=== PATIENT | male | born 1960 | race African-American/Black ===

== ENCOUNTER 2022-06-15 01:10 | Inpatient (IN) | payer MEDICAID ==
[~2022-06-15] VITALS: Ht 165.1 cm; Wt 100.2 kg
[2022-06-15] MEDS ORDERED: ONDANSETRON HCL 4MG/2ML INJ IV STA (01:30)
[2022-06-15] MEDS ORDERED: ASPIRIN 325MG EC TABLET PO ONE (01:30)
[2022-06-15] MEDS ORDERED: MORPHINE SULFATE 4 MG/ML CPJ (NOT FOR IM USE) IV STA (01:30)
[2022-06-15 02:13] LABS: BASOPHILS % 0.4 % (0.0-2.0); HEMATOCRIT. 38.4 % (42.0-52.0); HEMOGLOBIN. 13.1 g/dL (14.0-18.0); LYMPHOCYTES % 28.7 % (20.0-50.0); MEAN CORPUSCULAR HEMOGLOBIN 30.6 pg (28.0-32.0); MEAN CORPUSCULAR VOLUME 89.8 fL (80.0-94.0); MEAN PLATELET VOLUME 7.1 fl (7.4-10.4); MONOCYTES % 9.7 % (2.0-8.0); NEUTROPHILS % 58.2 % (40.0-76.0); PLATELET 268 x1000/uL (130-400); RED BLOOD CELL COUNT 4.28 mill/uL (4.7-6.1); RED CELL DISTRIBUTION WIDTH 13.6 % (11.6-14.6)
[2022-06-15 02:45] LABS: PROTHROMBIN TIME 10.3 sec (9.6-11.0)
[2022-06-15] MEDS ORDERED: ENOXAPARIN 100MG/ML SYR SUBCUT NR (02:45)
[2022-06-15 02:48] LABS: ETHANOL BLOOD < 10 mg/dL
[2022-06-15 03:45] LABS: *AMPHETAMINES SCREEN URINE NEGATIVE (NEGATIVE); *BARBITURATES SCREEN URINE NEGATIVE (NEGATIVE); *BENZODIAZEPINES SCREEN URINE NEGATIVE (NEGATIVE); *COCAINE SCREEN URINE NEGATIVE (NEGATIVE); CANNABINOID URINE SCREEN NEGATIVE (NEGATIVE); METHADONE URINE SCREEN NEGATIVE (NEGATIVE); OPIATES URINE SCREEN PRESUMTIVE POSITIVE (NEGATIVE); PHENCYCLIDINE URINE SCREEN NEGATIVE (NEGATIVE)
[2022-06-15 05:37] LABS: CHLORIDE 101 mEq/L (98-107)
[2022-06-15 09:00] VITALS: BP 131/72
[2022-06-15] MEDS ORDERED: NALOXONE HCL 0.4MG/ML VIAL IV PRN (13:45)
[2022-06-15] MEDS ORDERED: DEXTROSE 50% WATER 50ML SYRINGE IV PRN (14:30)
[2022-06-15 16:00] VITALS: BP 132/72
[2022-06-15] MEDS ORDERED: METOPROLOL SUCCINATE 50MG ER TABLET PO SCH (17:00)
[2022-06-15] MEDS ORDERED: INSULIN LISPRO 100 UNITS/ML SUBCUT SCH (17:40)
[2022-06-15] MEDS: INSULIN LISPRO 100 UNITS/ML SUBCUT SCH ×2 (17:45→21:49)
[2022-06-15] MEDS: BLOOD SUGAR DIAGNOSTIC STRIP TEST SCH ×2 (17:48→21:33)
[2022-06-15] MEDS: HYDROCODONE/ACETAMINOPHEN 5/325MG TABLET PO PRN (17:53)
[2022-06-15 20:00] VITALS: BP 136/87
[2022-06-15] MEDS: ATORVASTATIN CALCIUM 40MG TABLET PO SCH (21:47)
[2022-06-15] MEDS: FAMOTIDINE 20MG TABLET PO SCH (21:48)
[2022-06-15] MEDS: METOPROLOL TARTRATE 50MG TABLET PO SCH (21:48)
[2022-06-16] VITALS: BP 126/85
[2022-06-16 04:00] VITALS: BP 163/107
[2022-06-16] MEDS: BLOOD SUGAR DIAGNOSTIC STRIP TEST SCH ×4 (06:47→21:56)
[2022-06-16 07:32] LABS: BASOPHILS % 0.3 % (0.0-2.0); EOSINOPHILS % 2.5 % (0.0-5.0); HEMATOCRIT. 39.7 % (42.0-52.0); HEMOGLOBIN. 13.6 g/dL (14.0-18.0); LYMPHOCYTES % 24.2 % (20.0-50.0); MEAN CORPUSCULAR HEMOGLOBIN 30.6 pg (28.0-32.0); MEAN CORPUSCULAR VOLUME 89.3 fL (80.0-94.0); MEAN PLATELET VOLUME 7.2 fl (7.4-10.4); PLATELET 258 x1000/uL (130-400); RED BLOOD CELL COUNT 4.44 mill/uL (4.7-6.1); RED CELL DISTRIBUTION WIDTH 13.1 % (11.6-14.6)
[2022-06-16 08:00] VITALS: BP 145/87
[2022-06-16] MEDS: INSULIN LISPRO 100 UNITS/ML SUBCUT SCH ×4 (08:10→21:56)
[2022-06-16] MEDS ORDERED: ENOXAPARIN 40MG/0.4ML SYR SUBCUT SCH (09:00)
[2022-06-16] MEDS ORDERED: ASPIRIN 81MG TABLET PO SCH (09:00)
[2022-06-16] MEDS ORDERED: ATORVASTATIN CALCIUM 40MG TABLET PO SCH (09:00)
[2022-06-16] MEDS: METOPROLOL TARTRATE 50MG TABLET PO SCH (09:18)
[2022-06-16] MEDS: HYDROCODONE/ACETAMINOPHEN 5/325MG TABLET PO PRN ×2 (09:18→18:47)
[2022-06-16] MEDS: FAMOTIDINE 20MG TABLET PO SCH ×2 (09:18→21:46)
[2022-06-16] MEDS ORDERED: DIPHENHYDRAMINE 50MG/ML VIAL ONE (10:52)
[2022-06-16] MEDS ORDERED: HEPARIN 1000 UNITS/ML 10ML ONE (10:52)
[2022-06-16] MEDS ORDERED: VERAPAMIL HCL 2.5 MG/1 ML 2ML VIAL IV ONE (10:52)
[2022-06-16] MEDS ORDERED: LIDOCAINE HCL/PF 2% 20MG/ML 5 ML/VIAL ONE (10:52)
[2022-06-16] MEDS ORDERED: IODIXANOL 320MG/ML 100 ML BOTTLE IV ONE (10:54)
[2022-06-16] MEDS ORDERED: MIDAZOLAM HCL 2 MG/2 ML VIAL ONE (13:03)
[2022-06-16] MEDS ORDERED: FENTANYL CITRATE/PF 50MCG/ML 2ML VIAL ONE (13:03)
[2022-06-16] MEDS ORDERED: ATROPINE SULFATE 1MG/10ML SYR IV PRN (14:30)
[2022-06-16 16:00] VITALS: BP 135/81
[2022-06-16] MEDS ORDERED: NITROGLYCERIN 0.4MG TABLET SL SL PRN (18:15)
[2022-06-16] MEDS ORDERED: ACETAMINOPHEN 325MG TABLET PO PRN (18:15)
[2022-06-16] MEDS: FUROSEMIDE 40MG/4ML VIAL IVP SCH (18:18)
[2022-06-16 20:00] VITALS: BP 123/57
[2022-06-16] MEDS ORDERED: MAGNESIUM 2 G PREMIX 50 ML IV PRN (20:45)
[2022-06-16] MEDS ORDERED: ALBUMIN HUMAN 25GM/100ML (25%) IV PRN (20:45)
[2022-06-16] MEDS ORDERED: MAGNESIUM SULFATE 3 GM in DEXT 5% WATER 100 ML IV PRN (20:45)
[2022-06-16] MEDS ORDERED: CALCIUM CHLORIDE 5,000 MG in DEXT 5% WATER 500 ML IV PRN (20:45)
[2022-06-16] MEDS ORDERED: MAGNESIUM 1 G PREMIX 100 ML IV PRN (20:45)
[2022-06-16] MEDS ORDERED: SODIUM CHLORIDE 0.9% 500 ML IV PRN (20:45)
[2022-06-16] MEDS ORDERED: ONDANSETRON HCL 4MG/2ML INJ IV PRN (20:45)
[2022-06-16] MEDS ORDERED: KETOROLAC 15MG/ML VIAL IV PRN (20:45)
[2022-06-16] MEDS ORDERED: OXYCODONE HCL/ACETAMINOPHEN 5/325MG TABLET PO PRN (20:45)
[2022-06-16] MEDS ORDERED: CALCIUM CHLORIDE 3,000 MG in DEXT 5% WATER 250 ML IV PRN (20:45)
[2022-06-16] MEDS ORDERED: ALBUMIN HUMAN 12.5G/250ML (5%) IV PRN (20:45)
[2022-06-16] MEDS ORDERED: DIPHENHYDRAMINE 25MG CAPSULE PO PRN (21:00)
[2022-06-16] MEDS ORDERED: DOCUSATE SODIUM 100MG CAPSULE PO SCH (21:00)
[2022-06-16] MEDS ORDERED: DOPAMINE 400MG/250ML PREMIX 250 ML IV SCH (21:00)
[2022-06-16] MEDS ORDERED: ASCORBIC ACID 500 MG TABLET PO SCH (21:00)
[2022-06-16] MEDS ORDERED: CHLORHEXIDINE GLUCONATE 4% EXTERNAL USE TOP SCH (21:00)
[2022-06-16] MEDS ORDERED: BISACODYL 10MG SUPP PR PRN (21:00)
[2022-06-16 21:06] LABS: CHLORIDE 99 mEq/L (98-107)
[2022-06-16 21:14] LABS: BASOPHILS % 0.8 % (0.0-2.0); EOSINOPHILS % 1.8 % (0.0-5.0); HEMATOCRIT. 38.5 % (42.0-52.0); HEMOGLOBIN. 13.3 g/dL (14.0-18.0); LYMPHOCYTES % 20.7 % (20.0-50.0); MEAN CORPUSCULAR HEMOGLOBIN 30.5 pg (28.0-32.0); MEAN CORPUSCULAR VOLUME 88.3 fL (80.0-94.0); MEAN PLATELET VOLUME 6.6 fl (7.4-10.4); MONOCYTES % 9.7 % (2.0-8.0); PLATELET 265 x1000/uL (130-400); RED BLOOD CELL COUNT 4.36 mill/uL (4.7-6.1); RED CELL DISTRIBUTION WIDTH 12.9 % (11.6-14.6)
[2022-06-16] MEDS: ALLOPURINOL 300 MG TABLET PO SCH (21:43)
[2022-06-16] MEDS: CHLORDIAZEPOXIDE 25MG CAPSULE PO SCH (21:45)
[2022-06-16] MEDS: METOPROLOL TARTRATE 25MG TABLET PO SCH (21:45)
[2022-06-16] MEDS: ATORVASTATIN CALCIUM 40MG TABLET PO SCH (21:46)
[2022-06-16] MEDS ORDERED: CEFAZOLIN 1000MG PREMIX 50 ML IV SCH (22:00)
[2022-06-16 22:19] LABS: BG BASE EXCESS -0.9 mmol/L (-2.0-2.0); BG CARBOXYHEMOGLOBIN 0.6 % (0.5-1.5); BG DEOXYHEMOGLOBIN 3.6 % (0.0-5.0); BG FRACTION INSPIRED OXYGEN 21; BG HCO3 ACT 22.6 mmol/L (22.0-26.0); BG METHEMOGLOBIN 0.3 % (0.0-1.5); BG OXYGEN SATURATION 96.4 % (92.0-98.5); BG OXYHEMOGLOBIN 95.5 % (94.0-97.0); BG PCO2 34.4 mmHg (35.0-45.0); BG PH 7.436 (7.350-7.450); BG PO2 82.1 mmHg (75.0-100.0); BG SAMPLE SITE LEFT RADIAL; BG TOTAL HEMOGLOBIN 13.9 g/dL (12.0-18.0); BG VENT MODE ROOM AIR
[2022-06-17] VITALS (22 sets, daily range): BP systolic 95–198; BP diastolic 51–95
[2022-06-17] MEDS ORDERED: NOREPINEPHRINE 8MG/250ML PMX 250 ML IV NR (04:00)
[2022-06-17] MEDS ORDERED: CEFAZOLIN 2,000 MG in DEXT 5% WATER 100 ML IV NR (04:00)
[2022-06-17] MEDS ORDERED: DEL NIDO ELECTROLYTE-S(PH 7.4) 1,000 ML IV NR ×2 (04:00)
[2022-06-17] MEDS ORDERED: PAPAVERINE HCL 180MG in SODIUM CHLORIDE 0.9% 24ML IV NR ×2 (04:00→12:30)
[2022-06-17] MEDS ORDERED: EPINEPHRINE 5 MG in DEXT 5% WATER 245 ML IV NR (04:00)
[2022-06-17] MEDS ORDERED: INSULIN REGULAR 100U/100ML PMX 100 ML IV NR (04:00)
[2022-06-17] MEDS ORDERED: NICARDIPINE 40MG/200ML PREMIX 200 ML IV NR (04:00)
[2022-06-17] MEDS ORDERED: DOBUTAMINE 250 MG in DEXT 5% WATER 230 ML IV NR (04:00)
[2022-06-17] MEDS: IPRATROPIUM/ALBUTEROL 0.5-3(2.5)MG/3ML NEB HHN SCH ×5 (04:36→19:42)
[2022-06-17] MEDS: ALLOPURINOL 300 MG TABLET PO SCH (05:30)
[2022-06-17 05:55] LABS: BASOPHILS % 0.3 % (0.0-2.0); EOSINOPHILS % 2.2 % (0.0-5.0); HEMATOCRIT. 38.5 % (42.0-52.0); HEMOGLOBIN. 13.4 g/dL (14.0-18.0); LYMPHOCYTES % 27.6 % (20.0-50.0); MEAN CORPUSCULAR HEMOGLOBIN 31.1 pg (28.0-32.0); MEAN CORPUSCULAR VOLUME 89.7 fL (80.0-94.0); MEAN PLATELET VOLUME 6.9 fl (7.4-10.4); MONOCYTES % 11.3 % (2.0-8.0); NEUTROPHILS % 58.6 % (40.0-76.0); PLATELET 245 x1000/uL (130-400); RED BLOOD CELL COUNT 4.29 mill/uL (4.7-6.1); RED CELL DISTRIBUTION WIDTH 13.4 % (11.6-14.6)
[2022-06-17 06:10] LABS: CHLORIDE 97 mEq/L (98-107)
[2022-06-17] MEDS: BLOOD SUGAR DIAGNOSTIC STRIP TEST SCH ×7 (06:52→23:00)
[2022-06-17] MEDS: CHLORDIAZEPOXIDE 25MG CAPSULE PO SCH ×3 (06:53→21:10)
[2022-06-17] MEDS: INSULIN LISPRO 100 UNITS/ML SUBCUT SCH ×2 (07:20→12:20)
[2022-06-17] MEDS: METOPROLOL TARTRATE 25MG TABLET PO SCH ×2 (09:00→21:10)
[2022-06-17] MEDS: THIAMINE HCL 100MG TABLET PO SCH (09:00)
[2022-06-17] MEDS: MULTIVITAMINS,THER W-MINERALS TABLET PO SCH (09:00)
[2022-06-17] MEDS: FOLIC ACID 1MG TABLET PO SCH (09:00)
[2022-06-17] MEDS ORDERED: FAMOTIDINE 20MG/2ML VIAL IV SCH (09:00)
[2022-06-17] MEDS ORDERED: CHLORHEXIDINE GLUCONATE 4% EXTERNAL USE TOP SCH (09:00)
[2022-06-17] MEDS ORDERED: BACITRACIN 15GM TUBE TOP SCH (09:00)
[2022-06-17] MEDS: FUROSEMIDE 40MG/4ML VIAL IVP SCH (09:00)
[2022-06-17] MEDS ORDERED: DOCUSATE SODIUM 100MG CAPSULE PO SCH (09:00)
[2022-06-17] MEDS ORDERED: DOPAMINE 400MG/250ML PREMIX 250 ML IV ONE (10:58)
[2022-06-17] MEDS ORDERED: HEPARIN 1000 UNITS/ML 10ML ONE ×2 (10:59→15:24)
[2022-06-17] MEDS ORDERED: NICARDIPINE 40MG/200ML PREMIX 200 ML IV ONE (10:59)
[2022-06-17] MEDS ORDERED: NOREPINEPHRINE 8 MG in DEXTROSE 5% WATER 250 ML IV PRN (11:15)
[2022-06-17] MEDS ORDERED: THROMBIN (BOVINE) 5000 UNITS/VIAL TOP ONE (11:44)
[2022-06-17] MEDS ORDERED: POLYMYXIN B SULFATE 500000 UNITS/VIAL ONE (11:44)
[2022-06-17] MEDS ORDERED: SKIN ADHESIVE 0.7 GM EA TOP ONE (11:44)
[2022-06-17] MEDS ORDERED: SEVOFLURANE 250 ML LIQUID INH ONE (12:21)
[2022-06-17] MEDS ORDERED: FENTANYL CITRATE/PF 50MCG/ML 2ML VIAL ONE ×2 (13:33→16:51)
[2022-06-17] MEDS ORDERED: ROCURONIUM BROMIDE 10MG/ML VIAL 5ML IV ONE ×2 (13:33→15:37)
[2022-06-17] MEDS ORDERED: PROPOFOL 200MG/20ML VIAL IV ONE (13:50)
[2022-06-17] MEDS ORDERED: DEXAMETHASONE 4MG/ML 1ML VIAL ONE (14:52)
[2022-06-17] MEDS ORDERED: SODIUM BICARBONATE 8.4% 1 MEQ/ML 50ML SYR IV ONE ×2 (14:52→16:07)
[2022-06-17] MEDS ORDERED: KCL 10MEQ/50ML PREMIX 100 ML IV PRN (15:00)
[2022-06-17] MEDS ORDERED: DEXTROSE 50% WATER 50ML SYRINGE IV PRN ×2 (15:00)
[2022-06-17] MEDS ORDERED: PROTAMINE SULFATE 10MG/ML VIAL 25ML IV ONE (15:48)
[2022-06-17] MEDS ORDERED: KETOROLAC 30MG/ML VIAL ONE (15:48)
[2022-06-17] MEDS ORDERED: NEOSTIGMINE METHYLSULFATE 1MG/ML 10 ML VIAL ONE (16:09)
[2022-06-17] MEDS ORDERED: GLYCOPYRROLATE 0.2 MG/ML 2ML VIAL ONE ×2 (16:10)
[2022-06-17] MEDS ORDERED: ALBUTEROL 6.7GM HFA INHALER ONE (16:24)
[2022-06-17] MEDS ORDERED: CALCIUM CHLORIDE 5,000 MG in DEXT 5% WATER 500 ML IV PRN (16:30)
[2022-06-17] MEDS ORDERED: MAGNESIUM SULFATE 3 GM in DEXT 5% WATER 100 ML IV PRN (16:30)
[2022-06-17] MEDS ORDERED: CALCIUM CHLORIDE 3,000 MG in DEXT 5% WATER 250 ML IV PRN (16:30)
[2022-06-17] MEDS ORDERED: ALBUMIN HUMAN 12.5G/250ML (5%) IV PRN (16:30)
[2022-06-17] MEDS ORDERED: DOPAMINE 400MG/250ML PREMIX 250 ML IV SCH (16:30)
[2022-06-17] MEDS ORDERED: CEFAZOLIN 1000MG PREMIX 50 ML IV SCH (16:30)
[2022-06-17] MEDS ORDERED: MAGNESIUM 1 G PREMIX 100 ML IV PRN (16:30)
[2022-06-17] MEDS ORDERED: ALBUMIN HUMAN 25GM/100ML (25%) IV PRN ×2 (16:30→17:00)
[2022-06-17] MEDS ORDERED: MAGNESIUM 2 G PREMIX 50 ML IV PRN (16:30)
[2022-06-17] MEDS ORDERED: KETOROLAC 30MG/ML VIAL IV PRN (16:30)
[2022-06-17] MEDS ORDERED: ONDANSETRON HCL 4MG/2ML INJ IV PRN (16:30)
[2022-06-17] MEDS ORDERED: EPINEPHRINE 5 MG in DEXT 5% WATER 245 ML IV SCH (16:30)
[2022-06-17] MEDS ORDERED: ACETAMINOPHEN 325MG TABLET PO PRN (16:30)
[2022-06-17] MEDS ORDERED: SODIUM CHLORIDE 0.9% 500 ML IV PRN (16:30)
[2022-06-17] MEDS ORDERED: ALBUMIN HUMAN 25GM/100ML (25%) IV ONE (16:33)
[2022-06-17] MEDS ORDERED: AMIODARONE HCL 900 MG in DEXT 5% WATER 500 ML IV PRN (16:45)
[2022-06-17] MEDS: BACITRACIN 15GM TUBE TOP SCH (17:00)
[2022-06-17 17:17] LABS: BG BASE EXCESS -5.1 mmol/L (-2.0-2.0); BG CARBOXYHEMOGLOBIN 0.3 % (0.5-1.5); BG DEOXYHEMOGLOBIN 1.3 % (0.0-5.0); BG FRACTION INSPIRED OXYGEN 100; BG HCO3 ACT 19.7 mmol/L (22.0-26.0); BG METHEMOGLOBIN 0.1 % (0.0-1.5); BG OXYGEN SATURATION 98.7 % (92.0-98.5); BG OXYHEMOGLOBIN 98.3 % (94.0-97.0); BG PCO2 35.9 mmHg (35.0-45.0); BG PH 7.358 (7.350-7.450); BG PO2 184.1 mmHg (75.0-100.0); BG SAMPLE SITE ALINE; BG TOTAL HEMOGLOBIN 12.3 g/dL (12.0-18.0); BG VENT MODE MASK - NRB
[2022-06-17] MEDS ORDERED: SODIUM BICARBONATE 8.4% 1 MEQ/ML 50ML SYR IV NR ×2 (17:30→21:30)
[2022-06-17] MEDS: INSULIN REGULAR 100U/100ML PMX 100 ML IV SCH (17:34)
[2022-06-17 17:35] LABS: BASOPHILS % 0.1 % (0.0-2.0); EOSINOPHILS % 0.2 % (0.0-5.0); HEMATOCRIT. 33.3 % (42.0-52.0); HEMOGLOBIN. 11.3 g/dL (14.0-18.0); LYMPHOCYTES % 9.1 % (20.0-50.0); MEAN CORPUSCULAR HEMOGLOBIN 30.5 pg (28.0-32.0); MEAN CORPUSCULAR VOLUME 89.6 fL (80.0-94.0); MEAN PLATELET VOLUME 6.8 fl (7.4-10.4); NEUTROPHILS % 89.6 % (40.0-76.0); PLATELET 240 x1000/uL (130-400); RED BLOOD CELL COUNT 3.72 mill/uL (4.7-6.1); RED CELL DISTRIBUTION WIDTH 13.4 % (11.6-14.6)
[2022-06-17 17:42] LABS: CHLORIDE 101 mEq/L (98-107)
[2022-06-17] MEDS: KCL 10MEQ/50ML PREMIX 200 ML IV PRN ×3 (18:16→21:09)
[2022-06-17] MEDS ORDERED: DEXT 5%/0.45% NACL 1000ML 1,000 ML IV SCH (19:30)
[2022-06-17] MEDS: MAGNESIUM HYDROXIDE 400MG/5ML 30ML UDC PO SCH ×2 (20:00→21:44)
[2022-06-17] MEDS: DOCUSATE SODIUM 100MG CAPSULE PO SCH (21:10)
[2022-06-17] MEDS: CEFAZOLIN 1000MG PREMIX 50 ML IV SCH (21:10)
[2022-06-17] MEDS: ATORVASTATIN CALCIUM 40MG TABLET PO SCH (21:10)
[2022-06-17] MEDS ORDERED: FUROSEMIDE 40MG/4ML VIAL IVP SCH (21:15)
[2022-06-17] MEDS ORDERED: ASPIRIN 81MG EC TABLET PO SCH (21:15)
[2022-06-17] MEDS ORDERED: METOPROLOL TARTRATE 25MG TABLET PO SCH (21:15)
[2022-06-17] MEDS: CLOPIDOGREL 75MG TABLET PO SCH (21:45)
[2022-06-17] MEDS ORDERED: CHLORDIAZEPOXIDE 25MG CAPSULE PO SCH (22:00)
[2022-06-17] MEDS: OXYCODONE HCL/ACETAMINOPHEN 5/325MG TABLET PO PRN (22:02)
[2022-06-18] VITALS (46 sets, daily range): BP systolic 78–157; BP diastolic 32–104
[2022-06-18] MEDS: MAGNESIUM HYDROXIDE 400MG/5ML 30ML UDC PO SCH ×6 (00:04→19:52)
[2022-06-18] MEDS: BLOOD SUGAR DIAGNOSTIC STRIP TEST SCH ×20 (00:15→21:00)
[2022-06-18] MEDS: IPRATROPIUM/ALBUTEROL 0.5-3(2.5)MG/3ML NEB HHN SCH ×6 (00:33→20:05)
[2022-06-18] MEDS: KCL 10MEQ/50ML PREMIX 200 ML IV PRN (01:06)
[2022-06-18] MEDS: OXYCODONE HCL/ACETAMINOPHEN 5/325MG TABLET PO PRN ×3 (04:30→15:19)
[2022-06-18 04:42] LABS: HEMATOCRIT. 31.8 % (42.0-52.0); HEMOGLOBIN. 10.9 g/dL (14.0-18.0); MEAN CORPUSCULAR HEMOGLOBIN 30.4 pg (28.0-32.0); MEAN CORPUSCULAR VOLUME 88.6 fL (80.0-94.0); PLATELET 236 x1000/uL (130-400); RED BLOOD CELL COUNT 3.58 mill/uL (4.7-6.1); RED CELL DISTRIBUTION WIDTH 13.2 % (11.6-14.6)
[2022-06-18 04:48] LABS: CHLORIDE 98 mEq/L (98-107)
[2022-06-18] MEDS: CEFAZOLIN 1000MG PREMIX 50 ML IV SCH ×3 (05:03→22:31)
[2022-06-18] MEDS: CHLORDIAZEPOXIDE 25MG CAPSULE PO SCH ×3 (05:04→22:30)
[2022-06-18 05:07] LABS: BG BASE EXCESS 6.3 mmol/L (-2.0-2.0); BG CARBOXYHEMOGLOBIN 0.4 % (0.5-1.5); BG DEOXYHEMOGLOBIN 1.8 % (0.0-5.0); BG FRACTION INSPIRED OXYGEN 24; BG HCO3 ACT 30.1 mmol/L (22.0-26.0); BG METHEMOGLOBIN 0.3 % (0.0-1.5); BG OXYGEN SATURATION 98.2 % (92.0-98.5); BG OXYHEMOGLOBIN 97.5 % (94.0-97.0); BG PCO2 40.5 mmHg (35.0-45.0); BG PH 7.489 (7.350-7.450); BG PO2 110.3 mmHg (75.0-100.0); BG SAMPLE SITE ALINE; BG TOTAL HEMOGLOBIN 12.2 g/dL (12.0-18.0); BG VENT MODE NASAL CANNULA
[2022-06-18] MEDS: INSULIN REGULAR 100U/100ML PMX 100 ML IV SCH (05:46)
[2022-06-18] MEDS ORDERED: FUROSEMIDE 100MG/10ML VIAL IVP SCH (09:00)
[2022-06-18] MEDS: FUROSEMIDE 40MG/4ML VIAL IVP SCH (09:00)
[2022-06-18] MEDS: THIAMINE HCL 100MG TABLET PO SCH (09:05)
[2022-06-18] MEDS: MULTIVITAMINS,THER W-MINERALS TABLET PO SCH (09:05)
[2022-06-18] MEDS: METOPROLOL TARTRATE 25MG TABLET PO SCH ×2 (09:06→22:31)
[2022-06-18] MEDS: FOLIC ACID 1MG TABLET PO SCH (09:06)
[2022-06-18] MEDS: DOCUSATE SODIUM 100MG CAPSULE PO SCH ×2 (09:06→16:23)
[2022-06-18] MEDS: FAMOTIDINE 20MG/2ML VIAL IV SCH (09:18)
[2022-06-18] MEDS: CLOPIDOGREL 75MG TABLET PO SCH (09:18)
[2022-06-18] MEDS: AMIODARONE HCL 200 MG TABLET PO SCH ×2 (09:19→16:23)
[2022-06-18] MEDS: BACITRACIN 15GM TUBE TOP SCH ×2 (09:22→16:24)
[2022-06-18] MEDS ORDERED: MAGNESIUM 4 G PREMIX 100 ML IV SCH (10:00)
[2022-06-18 11:03] LABS: PLATELET ESTIMATE NORMAL
[2022-06-18 16:00] LABS: HEMATOCRIT. 32.6 % (42.0-52.0); MEAN CORPUSCULAR HEMOGLOBIN 30.3 pg (28.0-32.0); MEAN CORPUSCULAR VOLUME 89.8 fL (80.0-94.0); MEAN PLATELET VOLUME 7.3 fl (7.4-10.4); PLATELET 228 x1000/uL (130-400); RED BLOOD CELL COUNT 3.62 mill/uL (4.7-6.1); RED CELL DISTRIBUTION WIDTH 13.4 % (11.6-14.6)
[2022-06-18 16:53] LABS: PLATELET ESTIMATE NORMAL
[2022-06-18] MEDS: KCL 10MEQ/50ML PREMIX 150 ML IV PRN ×2 (17:16→19:42)
[2022-06-18] MEDS ORDERED: DEXTROSE 50% WATER 50ML SYRINGE IV PRN (17:45)
[2022-06-18] MEDS: INSULIN LISPRO 100 UNITS/ML SUBCUT SCH ×2 (18:20→22:32)
[2022-06-18] MEDS ORDERED: ATORVASTATIN CALCIUM 40MG TABLET PO SCH (21:00)
[2022-06-18] MEDS: ATORVASTATIN CALCIUM 40MG TABLET PO SCH (22:31)
[2022-06-19] VITALS (15 sets, daily range): BP systolic 80–123; BP diastolic 31–79
[2022-06-19] MEDS: IPRATROPIUM/ALBUTEROL 0.5-3(2.5)MG/3ML NEB HHN SCH ×7 (00:09→20:46)
[2022-06-19] MEDS: MAGNESIUM HYDROXIDE 400MG/5ML 30ML UDC PO SCH ×6 (04:00→20:00)
[2022-06-19] MEDS: CHLORDIAZEPOXIDE 25MG CAPSULE PO SCH ×3 (07:01→22:03)
[2022-06-19] MEDS ORDERED: FUROSEMIDE 40MG/4ML VIAL IVP NR (07:30)
[2022-06-19] MEDS: FOLIC ACID 1MG TABLET PO SCH (08:08)
[2022-06-19] MEDS: INSULIN LISPRO 100 UNITS/ML SUBCUT SCH ×4 (08:08→22:04)
[2022-06-19] MEDS: MULTIVITAMINS,THER W-MINERALS TABLET PO SCH (08:09)
[2022-06-19] MEDS: DOCUSATE SODIUM 100MG CAPSULE PO SCH ×2 (08:09→17:00)
[2022-06-19] MEDS: THIAMINE HCL 100MG TABLET PO SCH (08:09)
[2022-06-19] MEDS: CLOPIDOGREL 75MG TABLET PO SCH (08:09)
[2022-06-19] MEDS: AMIODARONE HCL 200 MG TABLET PO SCH ×2 (08:09→18:00)
[2022-06-19] MEDS: METOPROLOL TARTRATE 25MG TABLET PO SCH ×2 (08:12→21:00)
[2022-06-19] MEDS: FAMOTIDINE 20MG/2ML VIAL IV SCH (08:15)
[2022-06-19] MEDS: MINERAL OIL 30ML BOTTLE PO SCH ×2 (08:26→17:00)
[2022-06-19] MEDS: BACITRACIN 15GM TUBE TOP SCH ×2 (09:00→18:14)
[2022-06-19] MEDS: FUROSEMIDE 40MG/4ML VIAL IVP SCH (09:00)
[2022-06-19] MEDS: HYDROCODONE/ACETAMINOPHEN 5/325MG TABLET PO PRN (09:20)
[2022-06-19 10:34] LABS: BASOPHILS % 0.1 % (0.0-2.0); EOSINOPHILS % 0.6 % (0.0-5.0); HEMATOCRIT. 29.3 % (42.0-52.0); LYMPHOCYTES % 7.9 % (20.0-50.0); MEAN CORPUSCULAR VOLUME 90.6 fL (80.0-94.0); MEAN PLATELET VOLUME 7.2 fl (7.4-10.4); NEUTROPHILS % 83.4 % (40.0-76.0); PLATELET 214 x1000/uL (130-400); RED BLOOD CELL COUNT 3.23 mill/uL (4.7-6.1); RED CELL DISTRIBUTION WIDTH 13.6 % (11.6-14.6)
[2022-06-19 10:39] LABS: CHLORIDE 87 mEq/L (98-107)
[2022-06-19] MEDS ORDERED: NALOXONE HCL 0.4MG/ML VIAL IV PRN (12:30)
[2022-06-19] MEDS ORDERED: LACTULOSE 20G/30ML UDC PO NR (13:15)
[2022-06-19] MEDS: ATORVASTATIN CALCIUM 40MG TABLET PO SCH (22:03)
[2022-06-20] VITALS: BP 120/83
[2022-06-20] MEDS: IPRATROPIUM/ALBUTEROL 0.5-3(2.5)MG/3ML NEB HHN SCH ×6 (00:05→23:48)
[2022-06-20] MEDS: MAGNESIUM HYDROXIDE 400MG/5ML 30ML UDC PO SCH ×6 (04:00→20:50)
[2022-06-20 04:02] VITALS: BP 112/58
[2022-06-20] MEDS: CHLORDIAZEPOXIDE 25MG CAPSULE PO SCH ×3 (06:00→20:50)
[2022-06-20] MEDS: INSULIN LISPRO 100 UNITS/ML SUBCUT SCH ×4 (06:43→20:51)
[2022-06-20 06:46] LABS: BASOPHILS % 0.9 % (0.0-2.0); EOSINOPHILS % 1.4 % (0.0-5.0); HEMATOCRIT. 30.6 % (42.0-52.0); HEMOGLOBIN. 10.8 g/dL (14.0-18.0); MEAN CORPUSCULAR HEMOGLOBIN 31.6 pg (28.0-32.0); MEAN CORPUSCULAR VOLUME 89.8 fL (80.0-94.0); MEAN PLATELET VOLUME 7.1 fl (7.4-10.4); MONOCYTES % 9.5 % (2.0-8.0); NEUTROPHILS % 76.2 % (40.0-76.0); PLATELET 211 x1000/uL (130-400); RED BLOOD CELL COUNT 3.41 mill/uL (4.7-6.1); RED CELL DISTRIBUTION WIDTH 13.2 % (11.6-14.6)
[2022-06-20 07:16] LABS: CHLORIDE 90 mEq/L (98-107)
[2022-06-20 08:00] VITALS: BP 128/75
[2022-06-20] MEDS ORDERED: FUROSEMIDE 100MG/10ML VIAL IVP NR (08:15)
[2022-06-20] MEDS: DOCUSATE SODIUM 100MG CAPSULE PO SCH ×2 (08:34→17:01)
[2022-06-20] MEDS: FAMOTIDINE 20MG/2ML VIAL IV SCH (08:34)
[2022-06-20] MEDS: THIAMINE HCL 100MG TABLET PO SCH (08:35)
[2022-06-20] MEDS: MINERAL OIL 30ML BOTTLE PO SCH ×2 (08:35→17:01)
[2022-06-20] MEDS: MULTIVITAMINS,THER W-MINERALS TABLET PO SCH (08:35)
[2022-06-20] MEDS: CLOPIDOGREL 75MG TABLET PO SCH (08:35)
[2022-06-20] MEDS: AMIODARONE HCL 200 MG TABLET PO SCH ×2 (08:36→17:01)
[2022-06-20] MEDS: METOPROLOL TARTRATE 25MG TABLET PO SCH ×2 (08:37→20:50)
[2022-06-20] MEDS ORDERED: MINERAL OIL 30ML BOTTLE PO SCH (09:00)
[2022-06-20] MEDS: FUROSEMIDE 40MG/4ML VIAL IVP SCH (09:27)
[2022-06-20] MEDS: FOLIC ACID 1MG TABLET PO SCH (09:28)
[2022-06-20] MEDS: BACITRACIN 15GM TUBE TOP SCH ×2 (09:40→17:16)
[2022-06-20 12:00] VITALS: BP 115/62
[2022-06-20] MEDS: METOCLOPRAMIDE HCL 10MG/2ML VIAL IV SCH ×2 (13:04→17:04)
[2022-06-20 16:07] VITALS: BP 125/70
[2022-06-20] MEDS: ATORVASTATIN CALCIUM 40MG TABLET PO SCH (20:50)
[2022-06-20 21:05] VITALS: BP 101/48
[2022-06-21] VITALS (7 sets, daily range): BP systolic 101–121; BP diastolic 56–79
[2022-06-21] MEDS: METOCLOPRAMIDE HCL 10MG/2ML VIAL IV SCH ×5 (00:12→23:39)
[2022-06-21] MEDS: MAGNESIUM HYDROXIDE 400MG/5ML 30ML UDC PO SCH ×7 (00:12→23:35)
[2022-06-21] MEDS: IPRATROPIUM/ALBUTEROL 0.5-3(2.5)MG/3ML NEB HHN SCH ×5 (01:50→16:05)
[2022-06-21] MEDS: CHLORDIAZEPOXIDE 25MG CAPSULE PO SCH ×3 (05:59→22:10)
[2022-06-21 07:05] LABS: BASOPHILS % 0.3 % (0.0-2.0); HEMATOCRIT. 32.9 % (42.0-52.0); HEMOGLOBIN. 11.1 g/dL (14.0-18.0); LYMPHOCYTES % 15.3 % (20.0-50.0); MEAN CORPUSCULAR HEMOGLOBIN 30.4 pg (28.0-32.0); MEAN CORPUSCULAR VOLUME 90.1 fL (80.0-94.0); MEAN PLATELET VOLUME 7.3 fl (7.4-10.4); MONOCYTES % 12.3 % (2.0-8.0); NEUTROPHILS % 70.1 % (40.0-76.0); PLATELET 252 x1000/uL (130-400); RED BLOOD CELL COUNT 3.65 mill/uL (4.7-6.1); RED CELL DISTRIBUTION WIDTH 13.2 % (11.6-14.6)
[2022-06-21] MEDS: FOLIC ACID 1MG TABLET PO SCH (08:33)
[2022-06-21] MEDS: MULTIVITAMINS,THER W-MINERALS TABLET PO SCH (08:34)
[2022-06-21] MEDS: AMIODARONE HCL 200 MG TABLET PO SCH ×2 (08:34→18:06)
[2022-06-21] MEDS: CLOPIDOGREL 75MG TABLET PO SCH (08:34)
[2022-06-21] MEDS: THIAMINE HCL 100MG TABLET PO SCH (08:35)
[2022-06-21] MEDS: METOPROLOL TARTRATE 25MG TABLET PO SCH ×2 (08:35→21:00)
[2022-06-21] MEDS: DOCUSATE SODIUM 100MG CAPSULE PO SCH ×2 (08:35→18:05)
[2022-06-21] MEDS: FAMOTIDINE 20MG/2ML VIAL IV SCH (08:37)
[2022-06-21 08:48] LABS: CHLORIDE 94 mEq/L (98-107)
[2022-06-21 09:04] LABS: TOTAL IRON BINDING CAPACITY 288 ug/dL (250-450)
[2022-06-21] MEDS: BACITRACIN 15GM TUBE TOP SCH ×2 (09:16→18:16)
[2022-06-21] MEDS: FUROSEMIDE 40MG/4ML VIAL IVP SCH (09:16)
[2022-06-21] MEDS: INSULIN LISPRO 100 UNITS/ML SUBCUT SCH ×4 (09:17→22:11)
[2022-06-21] MEDS: MINERAL OIL 30ML BOTTLE PO SCH ×2 (09:18→17:00)
[2022-06-21] MEDS: ATORVASTATIN CALCIUM 40MG TABLET PO SCH (21:49)
[2022-06-22 00:08] VITALS: BP 101/56
[2022-06-22 04:00] VITALS: BP 115/77
[2022-06-22] MEDS: IPRATROPIUM/ALBUTEROL 0.5-3(2.5)MG/3ML NEB HHN SCH ×6 (04:00→20:58)
[2022-06-22] MEDS: MAGNESIUM HYDROXIDE 400MG/5ML 30ML UDC PO SCH ×5 (04:00→20:00)
[2022-06-22] MEDS: METOCLOPRAMIDE HCL 10MG/2ML VIAL IV SCH ×3 (06:01→18:00)
[2022-06-22 08:15] VITALS: BP 133/80
[2022-06-22] MEDS ORDERED: FUROSEMIDE 40MG/4ML VIAL IVP NR (08:15)
[2022-06-22] MEDS: FUROSEMIDE 40MG/4ML VIAL IVP SCH (09:00)
[2022-06-22] MEDS: MULTIVITAMINS,THER W-MINERALS TABLET PO SCH (09:37)
[2022-06-22] MEDS: THIAMINE HCL 100MG TABLET PO SCH (09:37)
[2022-06-22] MEDS: METOPROLOL TARTRATE 25MG TABLET PO SCH ×2 (09:38→21:00)
[2022-06-22] MEDS: CLOPIDOGREL 75MG TABLET PO SCH (09:39)
[2022-06-22] MEDS: DOCUSATE SODIUM 100MG CAPSULE PO SCH ×2 (09:39→17:00)
[2022-06-22] MEDS: FAMOTIDINE 20MG TABLET PO SCH (09:39)
[2022-06-22] MEDS: FOLIC ACID 1MG TABLET PO SCH (09:39)
[2022-06-22] MEDS: AMIODARONE HCL 200 MG TABLET PO SCH ×2 (09:40→17:53)
[2022-06-22] MEDS: MINERAL OIL 30ML BOTTLE PO SCH ×2 (09:40→17:00)
[2022-06-22] MEDS: INSULIN LISPRO 100 UNITS/ML SUBCUT SCH ×4 (09:49→21:38)
[2022-06-22] MEDS: BACITRACIN 15GM TUBE TOP SCH ×2 (11:23→17:00)
[2022-06-22 12:00] VITALS: BP 122/74
[2022-06-22] MEDS: SPIRONOLACTONE 25MG TABLET PO SCH (15:35)
[2022-06-22 16:00] VITALS: BP 108/73
[2022-06-22 20:00] VITALS: BP 110/75
[2022-06-22] MEDS: ATORVASTATIN CALCIUM 40MG TABLET PO SCH (21:35)
[2022-06-23] VITALS: BP 128/75
[2022-06-23] MEDS: IPRATROPIUM/ALBUTEROL 0.5-3(2.5)MG/3ML NEB HHN SCH ×5 (00:56→17:00)
[2022-06-23] MEDS: METOCLOPRAMIDE HCL 10MG/2ML VIAL IV SCH ×3 (00:57→12:00)
[2022-06-23 04:00] VITALS: BP 108/76
[2022-06-23] MEDS: MAGNESIUM HYDROXIDE 400MG/5ML 30ML UDC PO SCH ×5 (04:00→16:00)
[2022-06-23 06:00] LABS: BG BASE EXCESS 3.1 mmol/L (-2.0-2.0); BG CARBOXYHEMOGLOBIN 0.3 % (0.5-1.5); BG DEOXYHEMOGLOBIN 9.3 % (0.0-5.0); BG HCO3 ACT 25.7 mmol/L (22.0-26.0); BG METHEMOGLOBIN 0.2 % (0.0-1.5); BG OXYGEN SATURATION 90.7 % (92.0-98.5); BG OXYHEMOGLOBIN 90.2 % (94.0-97.0); BG PCO2 32.6 mmHg (35.0-45.0); BG PH 7.514 (7.350-7.450); BG PO2 55.5 mmHg (75.0-100.0); BG SAMPLE SITE LEFT RADIAL; BG TOTAL RESPIRATORY RATE 18 b/min; BG VENT MODE ROOM AIR
[2022-06-23] MEDS: INSULIN LISPRO 100 UNITS/ML SUBCUT SCH ×2 (07:20→12:57)
[2022-06-23 08:00] VITALS: BP 102/58
[2022-06-23] MEDS: METOPROLOL TARTRATE 25MG TABLET PO SCH (09:00)
[2022-06-23] MEDS: FUROSEMIDE 40MG/4ML VIAL IVP SCH (09:00)
[2022-06-23] MEDS: FAMOTIDINE 20MG TABLET PO SCH (09:00)
[2022-06-23] MEDS: MINERAL OIL 30ML BOTTLE PO SCH (09:00)
[2022-06-23] MEDS ORDERED: FURO-151 MT (09:18)
[2022-06-23] MEDS ORDERED: AMI2 PO (09:18)
[2022-06-23] MEDS ORDERED: SPIR25TA PO (09:18)
[2022-06-23] MEDS ORDERED: FAMO20TA8 PO (09:18)
[2022-06-23] MEDS ORDERED: THIA100T72 PO (09:18)
[2022-06-23] MEDS ORDERED: FOLI-43 PO (09:18)
[2022-06-23] MEDS ORDERED: ASPI-1160 PO (09:18)
[2022-06-23] MEDS ORDERED: METO25TA6 PO (09:18)
[2022-06-23] MEDS ORDERED: LIP40 PO (09:18)
[2022-06-23] MEDS ORDERED: CLOP75TA15 PO (09:18)
[2022-06-23] MEDS: AMIODARONE HCL 200 MG TABLET PO SCH (10:12)
[2022-06-23] MEDS: FOLIC ACID 1MG TABLET PO SCH (10:12)
[2022-06-23] MEDS: CLOPIDOGREL 75MG TABLET PO SCH (10:12)
[2022-06-23] MEDS: THIAMINE HCL 100MG TABLET PO SCH (10:12)
[2022-06-23] MEDS: DOCUSATE SODIUM 100MG CAPSULE PO SCH (10:12)
[2022-06-23] MEDS: MULTIVITAMINS,THER W-MINERALS TABLET PO SCH (10:13)
[2022-06-23] MEDS: SPIRONOLACTONE 25MG TABLET PO SCH (10:15)
[2022-06-23] MEDS: BACITRACIN 15GM TUBE TOP SCH (10:18)
[2022-06-23 11:46] LABS: BASOPHILS % 0.3 % (0.0-2.0); EOSINOPHILS % 0.9 % (0.0-5.0); HEMATOCRIT. 34.5 % (42.0-52.0); HEMOGLOBIN. 11.7 g/dL (14.0-18.0); LYMPHOCYTES % 8.9 % (20.0-50.0); MEAN CORPUSCULAR HEMOGLOBIN 30.4 pg (28.0-32.0); MEAN CORPUSCULAR VOLUME 89.6 fL (80.0-94.0); MEAN PLATELET VOLUME 7.3 fl (7.4-10.4); MONOCYTES % 11.2 % (2.0-8.0); NEUTROPHILS % 78.7 % (40.0-76.0); PLATELET 365 x1000/uL (130-400); RED BLOOD CELL COUNT 3.85 mill/uL (4.7-6.1); RED CELL DISTRIBUTION WIDTH 13.3 % (11.6-14.6)
[2022-06-23 12:00] VITALS: BP 110/70
[2022-06-23 12:32] LABS: CHLORIDE 90 mEq/L (98-107)
[2022-06-23 14:05] VITALS: BP 118/66
[2022-06-23 16:00] VITALS: BP 114/77
[2022-06-24] MEDS ORDERED: XLV MT (02:31)
== END 2022-06-23 18:45 | disposition home health service (06) | DRG 165 ==
LOC: ER 01:33 → 7WST 02:26 → EDBEDREQTM 02:33 → EDBEDREQ 02:33 → ENRESERV 06:51 → 3WST 06-16 14:39 → CVICU 06-17 14:41 → 3WST 06-19 04:27
PROVIDERS: ADMIT Internal Medicine; ATTEND Internal Medicine
PROC: 4A023N7 Measurement of Cardiac Sampling and Pressure, Left Heart, Percutaneous Approach (ICD-10-PCS; 2022-06-16)
PROC: B211YZZ Fluoroscopy of Multiple Coronary Arteries using Other Contrast (ICD-10-PCS; 2022-06-16)
PROC: 021009W Bypass Coronary Artery, One Artery from Aorta with Autologous Venous Tissue, Open Approach (ICD-10-PCS; principal; 2022-06-17)
PROC: 02100Z9 Bypass Coronary Artery, One Artery from Left Internal Mammary, Open Approach (ICD-10-PCS; 2022-06-17)
PROC: 06BQ4ZZ Excision of Left Saphenous Vein, Percutaneous Endoscopic Approach (ICD-10-PCS; 2022-06-17)
DX: T82.855A Stenosis of coronary artery stent, initial encounter (principal); I21.4 Non-ST elevation (NSTEMI) myocardial infarction; I50.21 Acute systolic (congestive) heart failure; I47.20 Ventricular tachycardia, unspecified; E87.1 Hypo-osmolality and hyponatremia; N17.9 Acute kidney failure, unspecified; K56.7 Ileus, unspecified; D64.9 Anemia, unspecified; E78.5 Hyperlipidemia, unspecified; E11.65 Type 2 diabetes mellitus with hyperglycemia; I44.7 Left bundle-branch block, unspecified; I11.0 Hypertensive heart disease with heart failure; K92.1 Melena; I25.10 Atherosclerotic heart disease of native coronary artery without angina pectoris; Y83.1 Surgical operation with implant of artificial internal device as the cause of abnormal reaction of the patient, or of later complication, without mention of misadventure at the time of the procedure; Z20.822 Contact with and (suspected) exposure to COVID-19; Y92.89 Other specified places as the place of occurrence of the external cause; I48.91 Unspecified atrial fibrillation; J44.9 Chronic obstructive pulmonary disease, unspecified; R09.02 Hypoxemia; F17.210 Nicotine dependence, cigarettes, uncomplicated; F10.10 Alcohol abuse, uncomplicated; Z91.14 Patient's other noncompliance with medication regimen; Z28.310 Unvaccinated for COVID-19; Z71.6 Tobacco abuse counseling; I25.2 Old myocardial infarction
CPT/HCPCS: 36415; 36600; 71045; 74018; 76705; 80048; 80053; 80061; 80305; 80320; 82375; 82728; 82805; 82962; 83036; 83540; 83550; 83735; 84484; 85025; 85347; 86850; 86900; 86920; 87426; 93005; 93306; 93458; 93880; 94640; 97110; 97116; 97162; 97166; 97530; 99285; C1729; C1751; C1758; C1769; C1887; C1893; J0690; J1100; J1200; J1250; J1265; J1644; J1650; J1815; J1885; J1940; J2250; J2270; J2405; J2440; J2704; J2710; J2720; J2765; J3010; J3475; J3480; J3490; J7060; L3908; P9047; Q9967; G0480

== ENCOUNTER 2022-06-23 22:11 | Emergency (ER) | payer MEDICAID ==
[~2022-06-23] VITALS: Ht 167.6 cm; Wt 100.0 kg
[~2022-06-23 22:11] MED LIST: AMI2 PO; ASPI-1160 PO; CLOP75TA15 PO; FAMO20TA8 PO; FOLI-43 PO; FURO-151 MT; LIP40 PO; METO25TA6 PO; SPIR25TA PO; THIA100T72 PO
[2022-06-23] MEDS ORDERED: MAGNESIUM/ALUMINUM HYDROXIDE/SIMETHICONE 30ML UDC PO ONE (23:45)
[2022-06-24 00:04] LABS: BASOPHILS % 0.5 % (0.0-2.0); EOSINOPHILS % 0.6 % (0.0-5.0); HEMATOCRIT. 32.3 % (42.0-52.0); LYMPHOCYTES % 8.9 % (20.0-50.0); MEAN CORPUSCULAR HEMOGLOBIN 30.6 pg (28.0-32.0); MEAN CORPUSCULAR VOLUME 89.6 fL (80.0-94.0); MEAN PLATELET VOLUME 7.2 fl (7.4-10.4); MONOCYTES % 9.5 % (2.0-8.0); NEUTROPHILS % 80.5 % (40.0-76.0); PLATELET 390 x1000/uL (130-400); RED BLOOD CELL COUNT 3.61 mill/uL (4.7-6.1); RED CELL DISTRIBUTION WIDTH 12.7 % (11.6-14.6)
[2022-06-24 00:12] LABS: CHLORIDE 89 mEq/L (98-107)
[2022-06-24 02:00] VITALS: BP 117/74
[2022-06-24] MEDS ORDERED: XLV MT (02:31)
== END 2022-06-24 03:24 | disposition home or self-care (01) ==
LOC: ER 22:11
DX: J02.9 Acute pharyngitis, unspecified (principal); I10 Essential (primary) hypertension; E11.9 Type 2 diabetes mellitus without complications; Z95.1 Presence of aortocoronary bypass graft; E78.00 Pure hypercholesterolemia, unspecified; M10.9 Gout, unspecified
CPT/HCPCS: 36415; 71045; 80053; 84484; 85025; 93005; 99285

== ENCOUNTER 2024-03-04 00:03 | Emergency (ER) | payer OTHER ==
[~2024-03-04] VITALS: Ht 165.1 cm; Wt 100.0 kg
[~2024-03-04 00:03] MED LIST changes: +METF-874 PO; +XLV MT
[2024-03-04 00:14] VITALS: O2SAT 98
[2024-03-04] MEDS: LIDOCAINE 5% PATCH TOP SCH (01:36)
[2024-03-04] MEDS: ACETAMINOPHEN 500MG TABLET PO ONE (01:36)
[2024-03-04] MEDS ORDERED: LIDO700A15 TP (02:08)
[2024-03-04] MEDS ORDERED: NAPR-1176 MT (02:08)
[2024-03-04 02:22] VITALS: BP 132/81; PULSE 73; RESP 16; TEMP 98.3
== END 2024-03-04 02:24 | disposition home or self-care (01) ==
LOC: ER 00:18
DX: M54.2 Cervicalgia (principal); I10 Essential (primary) hypertension; E78.00 Pure hypercholesterolemia, unspecified; E11.9 Type 2 diabetes mellitus without complications; Z79.899 Other long term (current) drug therapy; Z98.890 Other specified postprocedural states; Z79.82 Long term (current) use of aspirin
CPT/HCPCS: 99282